=== PATIENT | female | born 1955 ===

== ENCOUNTER 2018-07-14 10:32 | Outpatient (CLI) | payer OTHER | END 2018-07-14 10:33 | disposition home or self-care (01) | LOC: C.DEXAIC 10:32 | DX: R31.9 Hematuria, unspecified (principal) ==

== ENCOUNTER 2018-10-27 10:04 | Outpatient (CLI) | payer OTHER | END 2018-10-27 10:05 | disposition home or self-care (01) | LOC: C.USIC 10:04 | DX: E04.1 Nontoxic single thyroid nodule (principal); E11.69 Type 2 diabetes mellitus with other specified complication ==